=== PATIENT | male | born 1990 | race Two or more races ===

== ENCOUNTER 2024-01-08 19:12 | Emergency (ER) | payer OTHER ==
[2024-01-08] MEDS: Ondansetron 4 MG Tab.DIS PO ONE (20:35)
[2024-01-08] MEDS: Morphine 4 MG/ML Syringe IM ONE (20:35)
[2024-01-08] MEDS: Acetaminophen/HYDROcodone 325-5 MG Tab PO ONE (21:17)
== END 2024-01-08 21:23 | disposition home or self-care (01) ==
LOC: JD.ED 19:12
DX: S52.501A Unspecified fracture of the lower end of right radius, initial encounter for closed fracture (principal); F17.210 Nicotine dependence, cigarettes, uncomplicated; Z79.899 Other long term (current) drug therapy; W10.9XXA Fall (on) (from) unspecified stairs and steps, initial encounter; Y93.89 Activity, other specified
CPT/HCPCS: 29125; 71045; 72170; 73110; 96372; 99283; A9270; J2270